=== PATIENT | male | born 1950 | race Caucasian/White ===

== ENCOUNTER → 2016-06-21 | Outpatient (CLI) | payer OTHER, MEDICARE ==
[~2016-06-21] MED LIST: ADDE30TA PO; DIAZ10TA PO; HYDR-3533 PO; IBUP400T20 PO; IBUP800T23 PO; IMIT25TA PO; LIPI20TA PO; LISD70 PO; LISI-515 PO; METHY10 PO; NITR0.4S SL; PREV30CA11 PO; PROM25TA5 PO; VENL75TA PO; VITA400C5 PO; WELL200T PO
[2016-06-21 11:19] LABS: AUTOMATED NEUTROPHIL # 3.2 TH/MM3 (1.8-7.7); BASOPHIL # 0.1 TH/MM3 (0-0.2); BASOPHIL % 1.1 % (0.0-2.0); EOSINOPHIL # 0.5 TH/MM3 (0-0.4); EOSINOPHIL % 7.3 % (0.0-4.0); HEMATOCRIT 40.8 % (39.0-51.0); HEMO FLAGS DIFF FINAL; LYMPH % 33.5 % (9.0-44.0); LYMPHOCYTE # 2.2 TH/MM3 (1.0-4.8); MEAN CELL VOLUME 89.7 FL (80.0-100.0); MEAN CORPUSCULAR HEMOGLOBIN 30.6 PG (27.0-34.0); MEAN CORPUSCULAR HGB CONC 34.1 % (32.0-36.0); NEUT % 48.1 % (16.0-70.0); PLATELET COUNT 231 TH/MM3 (150-450); RED BLOOD COUNT 4.54 MIL/MM3 (4.50-5.90); RED CELL DISTRIBUTION WIDTH 13.6 % (11.6-17.2); WHITE BLOOD COUNT 6.6 TH/MM3 (4.0-11.0)
[2016-06-21 11:41] LABS: BICARBONATE 31.6 MEQ/L (21.0-32.0); POTASSIUM 4.2 MEQ/L (3.5-5.1)
--- NOTE | 2016-06-22 15:39 | EKG ---
Date Performed: 06/21/2016 Time Performed: 09:24:55 PTAGE: 66 years EKG: Sinus rhythm NORMAL ECG PREVIOUS TRACING : 01/16/2014 08.42 Compared to prior tracing no significant change DOCTOR: Davide Bartholomew Interpretating Date/Time 06/22/2016 15:40:17
== END ==
LOC: CPRE 09:07
PROVIDERS: ATTEND Orthopaedic Surgery Orthopaedic Surgery of the Spine
DX: Z01.810 Encounter for preprocedural cardiovascular examination (principal); Z01.812 Encounter for preprocedural laboratory examination; M48.06 Spinal stenosis, lumbar region
CPT/HCPCS: 36415; 80048; 85025; 93005

== ENCOUNTER → 2016-06-26 | Day surgery (SDC) | payer OTHER, MEDICARE ==
[~2016-06-26] VITALS: Ht 180.3 cm; Wt 75.0 kg
[~2016-06-26] MED LIST changes: +*HYDROmorphone PF 1 MG VIAL PERIprocedural Use ONLY ONE; +*morphine SULFATE 8 MG/ML PERIprocedure ONLY ONE; +ACETAMINOPHEN 1000 MG/100 ML VIAL IV ONE; +ACETAMINOPHEN/HYDROcodone 325 MG/10 MG TAB PO PRN; +BUPIVACAINE/EPINEPHRINE 0.25% PF 10 ML VIAL ONE; +CHLORHEXIDINE GLUCONATE 2 % 1 PACK (2 CLOTHS) TOPICAL PRN; +DO NOT ADM ANY ANTICOAGULANT DRUGS PRN; +FAMOTIDINE 20 MG/2 ML VIAL ONE; +GENTAMICIN SULFATE 80 MG/2 ML VIAL ONE; -IBUP800T23 PO; +INSULIN HUMAN REGULAR 1,000 UNITS/10 ML VIAL SQ PRN; +LACTATED RINGER'S 1000 ML INJ 1,000 ML IV ONE; +LACTATED RINGER'S 1000 ML IV PRN; -LISD70 PO; +METOPROLOL TARTRATE 25 MG TAB PO PRN; +MIDAZOLAM HCL 2 MG/2 ML VIAL ONE; +NEOSTIGMINE 3 MG/3 ML SYR IV ONE; +ONDANSETRON HCL 4 MG/2 ML VIAL IV PUSH ONE; +PHENYLEPH/NS 1000 MCG/10 ML SYR IV ONE; +PROPOFOL 200 MG/20 ML AMP IV ONE; +SODIUM CHLORID 0.9% 500 ML IV PRN; +ceFAZolin 1,000 MG/NS 100 ML IV SCH; +ePHEDrine/NS 25 MG/5 ML SYR IV ONE; +fentaNYL CITRATE 250 MCG/5 ML AMP ONE
[2016-06-26] MEDS: CHLORHEXIDINE GLUCONATE 4% SOLN 120 ML BTL TOPICAL SCH ×2 (12:00→12:20)
[2016-06-26] MEDS: POVIDONE IODINE 5% (ANTISEPSIS KIT) 4 APPLICATIONS EACH NARE PRN (12:20)
[2016-06-26 12:35] VITALS: BP 161/99; PULSE 90; RESP 18; TEMP 98.8; O2SAT 100
[2016-06-26 17:40] VITALS: BP 111/76; PULSE 82; RESP 16; TEMP 97.7; O2SAT 99
--- NOTE | 2016-06-26 17:46 | RADRPT ---
EXAM DATE/TIME: 06/26/2016 15:04 [facility] COMPARISON: SPINE LUMBAR LATERAL ONLY, January 22, 2014, 11:00. INDICATIONS : Lumbar spine L3-4 laminectomy. OR. MEDICAL HISTORY : None. SURGICAL HISTORY : None. ENCOUNTER: Initial ACUITY: 1 day PAIN SCORE: Non-responsive. LOCATION: Lumbar L3-4 FINDINGS: A single lateral view of the lumbar spine was performed. There is a localization device placed band builder iorly at the third from the bottom disc space level.. CONCLUSION: The third from the bottom disc space level. Desmond Ley MD on June 26, 2016 at 17:43 Board Certified Radiologist. This report was verified electronically.
--- NOTE | 2016-06-27 11:17 | MP ---
cc: MEG HOLLOWAY M.D. DATE OF SURGERY 06/26/2016 PREOPERATIVE DIAGNOSIS 1. L3-4 left-sided ossified synovial cyst. 2. Status post lumbar laminectomy syndrome January 2014. POSTOPERATIVE DIAGNOSIS 1. L3-4 left-sided ossified synovial cyst. 2. Status post lumbar laminectomy syndrome January 2014. PROCEDURE L3-4 bilateral decompressive hemilaminectomy, foraminotomy and partial facetectomy, decompression of the nerve roots, partial foraminotomy with reexploration. SURGEON Grupo Holloway MD SENIOR COMPENSATION ANALYST Ashlee Mendoza PA-C ANESTHESIA General ESTIMATED BLOOD LOSS Less than 25 cc COMPLICATIONS None DRAINS None CONDITION Stable PLAN OF ACTIVITY Per order. PROCEDURE My home based assistant, Ashlee Mendoza PA-C was present for the entire surgical case. She was medically necessary for the entire case because of the complexity of the case and to facilitate the performance of the procedure. The RELAY CHECKER at the back table was not a skill set for this case to manipulate the instruments e.g., the multiple different types of soft tissue tractors, and nerve retractors. The patient was brought into the operating room and had satisfactory general endotracheal anesthesia by Dr. Ari Subramanian of the Department of Anesthesia. The patient carefully transferred onto the [facility] spinal frame. All pressure points were well-padded. The lumbosacral spine was prepped, draped in the usual sterile manner. A localizing x-ray was used to confirm the L3-4 interspace. Initially was anesthetized with local anesthesia using 0.25% Marcaine with epinephrine. The previous scar tissue was surgically excised. This was taken down dissecting the subcu tissue. The patient had an extensive amount of scar tissue. Bilateral decompressive hemilaminectomy was performed at L3-4 with continuous monitoring with imaging. Patient was found to have significant impingement of the nerve roots especially on the left side. The patient did have a calcified cyst which was removed carefully. There was no evidence of CSF leaks or bleeding. The wound was irrigated copiously. The wound itself was dry. The wound was closed in routine manner. The fascia closed with multiple interrupted #2 Tycron sutures. The subcutaneous tissues closed in layers with 0-Vicryl and 2-0 Vicryl. Skin was approximated with interrupted 2-0 nylon. A sterile dressing was applied. The patient tolerated the procedure well and arrived in the recovery room in stable and satisfactory condition. MD TAMMY Menard/PATRICIA /3:52 PM /11:09 AM
== END | disposition home or self-care (01) ==
LOC: HSDC 11:39
PROVIDERS: ATTEND Orthopaedic Surgery Orthopaedic Surgery of the Spine
DX: M96.1 Postlaminectomy syndrome, not elsewhere classified (principal); M71.38 Other bursal cyst, other site; I10 Essential (primary) hypertension; E78.5 Hyperlipidemia, unspecified; E78.00 Pure hypercholesterolemia, unspecified; K21.9 Gastro-esophageal reflux disease without esophagitis
CPT/HCPCS: 00630; 63042; 72020; 76000; J0131; J0690; J1170; J1580; J2250; J2270; J2370; J2405; J2710; J3010; J7120